=== PATIENT | male | born 1980 | race African-American/Black ===

== ENCOUNTER 2017-07-13 13:58 | Emergency (ER) | payer MEDICARE, OTHER ==
[~2017-07-13] VITALS: Ht 170.2 cm; Wt 84.0 kg
[~2017-07-13 13:58] MED LIST: HYDR25 PO; LAMO150T PO; LORA1TAB PO; PRED20 PO
[2017-07-13 14:03] VITALS: BP 118/62; PULSE 87; RESP 20; TEMP 98.6; O2SAT 99
[2017-07-13] MEDS ORDERED: LORA-392 PO (14:57)
[2017-07-13] MEDS ORDERED: LAMO25CH CHEW (14:57)
--- NOTE | 2017-07-13 14:59 | PD ---
HPI Chief Complaint: Allergic/Adverse Reaction Time Seen by Provider: 14:58 Travel History International Travel<30 days: No Contact w/Intl Traveler<30days: No Traveled to known affect area: No History of Present Illness HPI 37-year-old male came to the emergency room with history of rash all over his body that started 2 days ago after he ate some seafood. Today patient took one Benadryl pill but then decided to come to the emergency room since is not getting better. He says it has been a little itchy but he is trying not to scratch it. Vital signs are stable. He has had allergic reaction once in the past that he was seen in the emergency room. No respiratory issues. No nausea or vomiting. He does not appear to be in any distress. [facility] Past Medical History Narrative Medical List of his past medical, surgical, social and family history reviewed from the nursing note. Social History Alcohol Use: Yes Tobacco Use: No Allergies-Medications (Allergen,Severity, Reaction): Coded Allergies: shrimp (Verified Allergy, Severe, Rash, 07/13/17) acetaminophen (Verified Adverse Reaction, Unknown, unk, 07/13/17) pt said he is not supposed to take tylenol with his other meds Comments List of his allergies reviewed from the nursing note. Reported Meds & Prescriptions Reported Meds & Active Scripts Active Prednisone 20 Mg Tab 20 Mg PO BID 3 Days Benadryl Allergy (Diphenhydramine HCl) 25 Mg Cap 1 Tab PO Q6HR 3 Days Reported Lamotrigine 25 Mg Chew 25 Mg CHEW BID Ativan (Lorazepam) 0.5 Mg Tab 0.5 Mg PO HS PRN Narrative Medication List of his home medications reviewed from the nursing note. Review of Systems Except as stated in HPI: all other systems reviewed are Neg Skin: Positive Rash, Positive Itching Physical Exam Narrative GENERAL: Awake, alert, no obvious distress SKIN: Focused skin assessment warm/dry. Multiple papulovesicular tiny rash generalized with facial sparing HEAD: Atraumatic. Normocephalic. EYES: Pupils equal and round. No scleral icterus. No injection or drainage. ENT: No nasal bleeding or discharge. Mucous membranes pink and moist. NECK: Trachea midline. No JVD. CARDIOVASCULAR: Regular rate and rhythm. No murmur appreciated. RESPIRATORY: No accessory muscle use. Clear to auscultation. Breath sounds equal bilaterally. GASTROINTESTINAL: Abdomen soft, non-tender, nondistended. Hepatic and splenic margins not palpable. MUSCULOSKELETAL: No obvious deformities. No clubbing. No cyanosis. No edema. NEUROLOGICAL: Awake and alert. No obvious cranial nerve deficits. Motor grossly within normal limits. Normal speech. PSYCHIATRIC: Appropriate mood and affect; insight and judgment normal. Data Data Last Documented VS Orders Orders Ed Discharge Order (07/13/17 15:09) MDM Medical Decision Making Medical Screen Exam Complete: Yes Emergency Medical Condition: Yes Medical Record Reviewed: Yes Differential Diagnosis Allergic reaction Narrative Course 3:14 PM patient will be discharged home on Benadryl and prednisone prescription. Procedures EKG Prior to Arrival: No Diagnosis Primary Impression: Allergic reaction Qualified Codes: T78.40XA - Allergy, unspecified, initial encounter Referrals: Primary Care Physician Additional Instructions: Take the medication as per the prescription direction. Follow-up with primary care if symptoms do not improve. Return to the ER if condition worsens. Benadryl will make you groggy. He should not be driving while taking the medications. Med/Other Pt SpecificInfo: Prescription(s) given Scripts Prednisone (Prednisone) 20 Mg Tab 20 MG PO BID for 3 Days, #6 TAB 0 Refills Prov: Yen Henriquez MD 07/13/17 Diphenhydramine HCl (Benadryl Allergy) 25 Mg Cap 1 TAB PO Q6HR for 3 Days Prov: Yen Henriquez MD 07/13/17 Disposition: 01 DISCHARGE HOME Condition: Stable Yen Henriquez MD July 13, 2017 14:59
[2017-07-13] MEDS ORDERED: BENA25CA4 PO (15:11)
[2017-07-13] MEDS ORDERED: PRED20 PO (15:11)
== END 2017-07-13 15:26 | disposition home or self-care (01) ==
LOC: NEPD 13:58
DX: T78.40XA Allergy, unspecified, initial encounter (principal)
CPT/HCPCS: 99283